=== PATIENT | female | born 1980 | race Caucasian/White ===

== ENCOUNTER 2017-06-12 13:57 | Emergency (ER) | payer OTHER ==
[~2017-06-12] VITALS: Ht 167.6 cm; Wt 66.7 kg
[2017-06-12 14:03] VITALS: BP 144/83
--- NOTE | 2017-06-12 16:42 | ED GI/GU/ABDOMINAL COMPLAINT ---
History of Present Illness General Chief Complaint: Female Urogenital Problems Stated Complaint: SIB OB FOR ?SHOT Source: patient, old records Exam Limitations: no limitations Vital Signs & Intake/Output Vital Signs & Intake/Output Vital Signs Date Time Temp Pulse Resp B/P B/P Pulse O2 O2 Flow FiO2 Mean Ox Delivery Rate 06/12 1715 97 Room Air 06/12 1403 98.0 78 20 144/83 97 Room Air Room Air Allergies Coded Allergies: No Known Allergies (06/12/17) Reconcile Medications No Known Home Medications Triage Note: PT TO ED FROM PARKS RECREATION DIRECTOR "I HAD A POSITIVE TEST FOR A STD AND SENT IN FOR A TEST". Triage Nurses Notes Reviewed? yes ? n Is pt currently ? No Onset: Abrupt Duration: day(s): (1), constant Timing: recent history Quality/Severity: cramping Severity Numbers: 1 Location: vaginal Radiation: no radiation Activities at Onset: none Prior Abdominal Problems: none Sexually Active: Yes Last Time You Were Sexual: less than 2 months ago No Modifying Factors: none Associated Symptoms: denies HPI: 36-year-old female presents to the ER currently on Macrobid for a UTI sent in by her PRODUCTION WELDING SUPERVISOR doctor Jagdeep. The patient had a Pap smear performed last week which she was called today with the results testing positive for gonorrhea chlamydia. She was advised to come to the ER for medication. She states she's had pelvic discomfort, no discharge no bleeding she describes as cramps. She has not taken anything for her symptoms no fever no chills abdominal pain back pain nausea vomiting. No history of sexual transmitted disease in the past she is otherwise without any complaints. (Gustavo Martínez) Past History Travel History Traveled to [place] past 21 day No Medical History Any Pertinent Medical History? none Neurological: NONE EENT: NONE Cardiovascular: NONE Respiratory: NONE Gastrointestinal: NONE Hepatic: NONE Renal: NONE Musculoskeletal: NONE Psychiatric: NONE Endocrine: NONE Blood Disorders: NONE Cancer(s): NONE PRODUCTION WELDING SUPERVISOR/Reproductive: ? STD 06/12/17 Influenza Vaccine: 06/02/10 Surgical History Surgical History: none Psychosocial History What is your primary language Welsh Tobacco Use: Current Daily Use Daily Tobacco Use Amount/Type: => 5 Cigarettes daily ETOH Use: denies use Illicit Drug Use: denies illicit drug use Family History Hx Contributory? No (Gustavo Martínez) Review of Systems Review of Systems Constitutional: Reports: see HPI. Comments Review of systems: See HPI, All other systems negative. Constitutional, no chills no fever, HEENT: no sore throat no congestion Cardiovascular: No chest pain Skin: no rashes, no change in skin Respiratory: No dyspnea no cough GI: No nausea no vomiting, no diarrhea, no bloating/constipation : SEE HPI Muscle skeletal: No joint pain, no back pain Neurologic: , no headache Heme/endocrine: No bruising (Gustavo Martínez) Physical Exam Physical Exam General Appearance: well developed/nourished, no apparent distress, alert, awake , comfortable Gastrointestinal: soft, non-tender Comments: Well-developed well-nourished patient in no apparent distress. HEENT: Atraumatic, extraocular motion intact Neck: Supple, FROM Back: FROM Respiratory: No respiratory distress. Patient speaking in full complete sentences. ABD: Soft, nontender, no rebound no guarding Extremities: full range of motion Neuro: awake, alert, and oriented to person, place and time. There were no obvious focal neurologic abnormalities. Skin: Warm & dry;No appreciable rash on exposed skin Psych: Mood affect normal, normal memory normal judgment. Core Measures ACS in differential dx? No Sepsis Present: No Sepsis Focused Exam Completed? No (Gustavo Martínez) Progress Differential Diagnosis: kidney stone, PID/cervicitis, UTI/pyelo Plan of Care: Orders Procedure Date/time Status CHLAMYDIA-GC DNA PROBE 06/12 163 Active URINALYSIS 06/12 163 Complete Laboratory Tests 06/12/17 1630: Urine Color YEL, Urine Clarity HAZY H, Urine pH 6.0, Ur Specific [place] >= 1.030, Urine Protein NEG, Urine Ketones TRACE H, Urine Nitrite NEG, Urine Bilirubin NEG, Urine Urobilinogen 0.2, Ur Leukocyte Esterase MOD H, Ur Microscopic SEDIMENT EXAMINED, Urine RBC FEW H, Urine WBC 50-75 H, Ur Epithelial Cells MOD H, Urine Bacteria FEW H, Urine Mucus MOD H, Urine Hemoglobin TRACE-INTACT, Urine Glucose NEG Microbiology 06/12 163 URINE ROUT: GC DNA Probe - RECD 06/12 1629 URINE ROUT: Chlamydia DNA Probe (ESTEFANI) - RECD I discussed with the patient at length all of their results and of care I had an extensive conversation regarding need for close follow up with their primary care physician/sleeve setter this week as well as return precautions. I answered all of their questions, they feel comfortable with the plan and follow-up care. Initial ED EKG: none (Gustavo Martínez) Departure Departure Time of Disposition: 1647 Disposition: HOME OR SELF CARE Condition: Stable Clinical Impression Primary Impression: Sexually transmitted disease Referrals: Patient Has No Primary Care Dr (PCP/Family) Jagdeep LEE,Nevin De Additional Instructions: Follow up with your isobutylene operator chief dr holloway or your pmd this week. you have been treated as discussed for sexually transmitted disease. return with any concerns Departure Forms: Customer Survey General Discharge Information Prescriptions: Current Visit Scripts No Known Home Medications (Gustavo Martínez) PA/SYSTEMATIC THEOLOGY PROFESSOR Co-Sign Statement Statement: ED Attending supervision documentation- [] I saw and evaluated the patient. I have also reviewed all the pertinent lab results and diagnostic results. I agree with the findings and the plan of care as documented in the PA's/SYSTEMATIC THEOLOGY PROFESSOR's documentation. [X] I have reviewed the ED Record and agree with the PA's/SYSTEMATIC THEOLOGY PROFESSOR's documentation. [] Additions or exceptions (if any) to the PAs/SYSTEMATIC THEOLOGY PROFESSOR's note and plan are summarized below: [] (Edwar LEE,Diana)
== END 2017-06-12 17:21 ==
LOC: ERH 13:57
DX: A64 Unspecified sexually transmitted disease (principal)
CPT/HCPCS: 81001; 87491; 87591; 96372; J0456; J0696